=== PATIENT | male | born 1935 | race Caucasian/White ===

== ENCOUNTER 2017-08-02 05:38 | Outpatient (CLI) | payer MEDICARE, OTHER ==
[~2017-08-02] VITALS: Ht 175.3 cm; Wt 90.7 kg
[~2017-08-02 05:38] MED LIST: AC500T PO; ACDPT PO; ACEB200C PO; ALBU17AE23 IH; ASP81TEC PO; CEPH500C PO; CIPR500T78 PO; FLC1T PO; GBPN300C PO; GEMF600T3 PO; KCL20TCR PO; LOSA1TAB3 PO; LOSA1TAB9 PO; MULT-241 PO; NIA500ERT PO; NIAC1TBM5 PO; NIFE90TA4 PO; OMEG1CAP24 PO; SMV20T PO; VITA150T PO
[2017-08-02] MEDS ORDERED: ACEB200C PO (11:35)
[2017-08-02] MEDS ORDERED: FINA5TAB6 PO (11:35)
[2017-08-02] MEDS ORDERED: SIMV20TA3 PO (11:35)
[2017-08-02] MEDS ORDERED: AMLO10TA2 PO (11:35)
[2017-08-02] MEDS ORDERED: MULT-35 PO (11:35)
[2017-08-02] MEDS ORDERED: FOLI1TAB24 PO (11:35)
[2017-08-02] MEDS ORDERED: NIAC500T24 PO (11:35)
[2017-08-02] MEDS ORDERED: TAMS0.4C2 PO (11:35)
[2017-08-02] MEDS ORDERED: ACET-2469 PO (11:35)
[2017-08-02] MEDS ORDERED: VITA1CAP PO (11:35)
[2017-08-02] MEDS ORDERED: OMEG1CAP24 PO (11:35)
[2017-08-02] MEDS ORDERED: ASPI-586 PO (11:35)
[2017-08-02] MEDS ORDERED: LOSA25TA21 PO (11:35)
== END 2017-08-02 11:51 ==
LOC: PREOP 05:38
PROVIDERS: ATTEND Surgery
DX: Z01.818 Encounter for other preprocedural examination (principal); Z85.038 Personal history of other malignant neoplasm of large intestine

== ENCOUNTER 2017-08-09 09:28 | Day surgery (SDC) | payer MEDICARE, OTHER ==
[~2017-08-09] VITALS: Ht 175.3 cm; Wt 90.7 kg
[~2017-08-09 09:28] MED LIST changes: +ACET-2469 PO; +AMLO10TA2 PO; +ASPI-586 PO; +FINA5TAB6 PO; +FOLI1TAB24 PO; +LOSA25TA21 PO; +MULT-35 PO; +NIAC500T24 PO; +SIMV20TA3 PO; +TAMS0.4C2 PO; +VITA1CAP PO
--- OUTSIDE RECORDS SUMMARY | 2017-08-09 09:31 | XMS REPORT | Continuity of Care Document ---
Author Author [facility] Organization [facility] Address Unknown Phone Unavailable Allergies Active Description Code Type Severity Reaction Onset Reported/Identified Relationship to Patient Clinical Status Yes No Known Drug Allergies [id number] Drug Allergy Unknown N/A 08/02/2017 Medications There is no data. 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 08/13/2011 Ot 286.6 DEFIBRINATION SYNDROME 08/13/2011 Ot 300.00 ANXIETY STATE NOS 08/13/2011 Ot 355.9 MONONEURITIS NOS 08/13/2011 Ot 403.90 HYPTNSV CHR KID DIS, UNSPEC, W CHR KD ST 08/13/2011 Ot 414.01 CORONARY ATHEROSCLEROSIS OF EEK CORON 08/13/2011 Ot 482.39 PNEUMONIA DUE TO OTHER STREPTOCOCCUS 08/13/2011 Ot 585.3 CHRONIC KIDNEY DISEASE, STAGE III (MODER 08/13/2011 Ot 593.9 RENAL URETERAL DIS NOS 08/13/2011 Ot 682.6 CELLULITIS OF LEG 08/13/2011 Ot 726.73 CALCANEAL SPUR 08/13/2011 Ot 909.5 LATE EFF ADVER EFF DRUG,MEDICINAL/BIOLOG 08/13/2011 Ot 995.92 SEVERE SEPSIS 08/13/2011 Ot E933.1 ADV EFF ANTINEOPLASTIC 08/13/2011 Ot V10.05 HX OF COLONIC MALIGNANCY 08/13/2011 Ot V15.82 HISTORY OF TOBACCO USE 08/13/2011 Ot V45.72 ACQRD ABSENCE INTESTINE - LARGE/SMALL 08/13/2011 Ot V45.82 PERCUTANEOUS TRANSLUM CORON ANGIOPLASTY 03/16/2012 Ot 272.4 HYPERLIPIDEMIA NEC/NOS 03/16/2012 Ot 401.9 HYPERTENSION NOS 03/16/2012 Ot 414.01 CORONARY ATHEROSCLEROSIS OF EEK CORON 03/16/2012 Ot 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 03/16/2012 Ot 426.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 03/16/2012 Ot 433.10 CAROTID ARTERY OCCLUSION W O CEREBRAL IN 03/16/2012 Ot 794.30 ABN CARDIOVASC STUDY NOS 03/16/2012 Ot V45.82 PERCUTANEOUS TRANSLUM CORON ANGIOPLASTY 03/16/2012 Ot V58.66 LONG-TERM ( CURRENT) USE OF ASPIRIN 03/16/2012 Ot V58.69 OTH MED,LT, CURRENT USE 10/29/2013 YANIRA PANG MD Ot 599.0 URIN TRACT INFECTION NOS 10/29/2013 YANIRA PANG MD Ot 788.1 DYSURIA 05/31/2014 NAM COLEMAN, RYLEE K Ot 272.4 05/31/2014 NAM PA, RYLEE K Ot 396.8 05/31/2014 NAM PA, RYLEE K Ot 397.0 05/31/2014 NAM PA, RYLEE K Ot 401.9 05/31/2014 NAM PA, RYLEE K Ot 414.00 06/08/2014 NAM PA, RYLEE K Ot 272.4 06/08/2014 NAM PA, RYLEE K Ot 401.9 06/08/2014 NAM PA, RYLEE K Ot 414.00 06/08/2014 NAM PA, RYLEE K Ot 426.4 06/08/2014 ANM PA, RYLEE K Ot 427.61 06/08/2014 NAM PA, RYLEE K Ot 427.69 06/08/2014 NAM PA, RYLEE K Ot 780.79 06/12/2014 NAM PA, RYLEE K Ot 272.4 06/12/2014 NAM PA, RYLEE K Ot 396.8 06/12/2014 NAM PA, RYLEE K Ot 397.0 06/12/2014 NAM PA, RYLEE K Ot 401.9 06/12/2014 NAM PA, RYLEE K Ot 414.00 06/22/2014 NAM PA, RYLEE K Ot 272.4 06/22/2014 RYLEE PASTRANA Ot 401.9 06/22/2014 NAM COLEMAN, RYLEE Marquez Ot 414.00 06/22/2014 RYLEE PASTRANA Ot 426.4 06/22/2014 RYLEE PASTRANA Ot 427.61 06/22/2014 NAM COLEMAN, RYLEE Marquez Ot 427.69 06/22/2014 NAM COLEMAN, RYLEE Marquez Ot 780.79 05/13/2016 Ot 272.4 HYPERLIPIDEMIA NEC/NOS 05/13/2016 Ot 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 05/13/2016 Ot 397.0 TRICUSPID VALVE DISEASE 05/13/2016 Ot 401.9 HYPERTENSION NOS 05/13/2016 Ot 414.00 CORON ATHEROSCLER NOS TYPE VESSEL, NATIV 05/13/2016 Ot 429.3 CARDIOMEGALY 05/13/2016 Ot 272.4 HYPERLIPIDEMIA NEC/NOS 05/13/2016 Ot 401.9 HYPERTENSION NOS 05/13/2016 Ot 414.00 CORON ATHEROSCLER NOS TYPE VESSEL, NATIV 05/13/2016 Ot 272.4 HYPERLIPIDEMIA NEC/NOS 05/13/2016 Ot 401.9 HYPERTENSION NOS 05/13/2016 Ot 414.01 CORONARY ATHEROSCLEROSIS OF EEK CORON 05/13/2016 RYLEE PASTRANA Ot 272.4 HYPERLIPIDEMIA NEC/NOS 05/13/2016 RYLEE PASTRANA Ot 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 05/13/2016 RYLEE PASTRANA Ot 397.0 TRICUSPID VALVE DISEASE 05/13/2016 RYLEE PASTRANA Ot 401.9 HYPERTENSION NOS 05/13/2016 RYLEE PASTRANA Ot 414.00 CORON ATHEROSCLER NOS TYPE VESSEL, NATIV 05/13/2016 RYLEE PASTRANA Ot 272.4 HYPERLIPIDEMIA NEC/NOS 05/13/2016 RYLEE PASTRANA Ot 401.9 HYPERTENSION NOS 05/13/2016 RYLEE PASTRANA Ot 414.00 CORON ATHEROSCLER NOS TYPE VESSEL, NATIV 05/13/2016 RYLEE PASTRANA Ot 426.4 RT BUNDLE BRANCH BLOCK 05/13/2016 RYLEE PASTRANA Ot 427.61 ATRIAL PREMATURE BEATS 05/13/2016 RYLEE PASTRANA Ot 427.69 PREMATURE BEATS NEC 05/13/2016 RYLEE PASTRANA Ot 780.79 OTH MALAISE FATIGUE 05/14/2016 GERALD RODRIGUEZ MD Ot E78.2 MIXED HYPERLIPIDEMIA 05/14/2016 GERALD RODRIGUEZ MD Ot I10 ESSENTIAL (PRIMARY) HYPERTENSION 05/14/2016 GERALD RODRIGUEZ MD Ot I25.10 ATHSCL HEART DISEASE OF EEK CORONARY 05/14/2016 GERALD RODRIGUEZ MD Ot 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 05/14/2016 GERALD RODRIGUEZ MD Ot E78.2 MIXED HYPERLIPIDEMIA 05/14/2016 GERALD RODRIGUEZ MD Ot I10 ESSENTIAL (PRIMARY) HYPERTENSION 05/14/2016 GERALD RODRIGUEZ MD Ot I25.10 ATHSCL HEART DISEASE OF EEK CORONARY 05/14/2016 GERALD RODRIGUEZ MD Ot 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 06/02/2016 GERALD RODRIGUEZ MD Ot E78.2 MIXED HYPERLIPIDEMIA 06/02/2016 GERALD RODRIGUEZ MD Ot I10 ESSENTIAL (PRIMARY) HYPERTENSION 06/02/2016 GERALD RODRIGUEZ MD Ot I25.10 ATHSCL HEART DISEASE OF EEK CORONARY 06/02/2016 GERALD RODRIGUEZ MD Ot 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 08/02/2017 MICHELINE RAMEY, PATRICIA Patel Ot Z01.818 ENCOUNTER FOR OTHER PREPROCEDURAL EXAMIN 08/02/2017 MICHELINE RAMEY, PATRICIA Patel Ot Z85.038 PERSONAL HISTORY OF MALIGNANT NEOPLASM O 08/05/2017 Ot 272.4 HYPERLIPIDEMIA NEC/NOS 08/05/2017 Ot 401.9 HYPERTENSION NOS 08/05/2017 Ot 414.00 CORON ATHEROSCLER NOS TYPE VESSEL, NATIV 08/05/2017 Ot 272.4 HYPERLIPIDEMIA NEC/NOS 08/05/2017 Ot 401.9 HYPERTENSION NOS 08/05/2017 Ot 414.01 CORONARY ATHEROSCLEROSIS OF EEK CORON 08/05/2017 RYLEE PASTRANA Ot 272.4 HYPERLIPIDEMIA NEC/NOS 08/05/2017 RYLEE PASTRANA Ot 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 08/05/2017 RYLEE PASTRANA Ot 397.0 TRICUSPID VALVE DISEASE 08/05/2017 NAM COLEMAN RYLEE K Ot 401.9 HYPERTENSION NOS 08/05/2017 NAM COLEMAN RYLEE K Ot 414.00 CORON ATHEROSCLER NOS TYPE VESSEL, NATIV 08/05/2017 NAM COLEMAN RYLEE K Ot 272.4 HYPERLIPIDEMIA NEC/NOS 08/05/2017 NAM COLEMAN RYLEE K Ot 401.9 HYPERTENSION NOS 08/05/2017 NAM COLEMAN, RYLEE K Ot 414.00 CORON ATHEROSCLER NOS TYPE VESSEL, NATIV 08/05/2017 NAM COLEMAN RYLEE K Ot 426.4 RT BUNDLE BRANCH BLOCK 08/05/2017 RYLEE PASTRANA Ot 427.61 ATRIAL PREMATURE BEATS 08/05/2017 RYLEE PASTRANA Ot 427.69 PREMATURE BEATS NEC 08/05/2017 RYLEE PASTRANA Ot 780.79 OTH MALAISE FATIGUE 08/05/2017 GERALD RODRIGUEZ MD Ot E78.2 MIXED HYPERLIPIDEMIA 08/05/2017 GERALD RODRIGUEZ MD Ot I10 ESSENTIAL (PRIMARY) HYPERTENSION 08/05/2017 GERALD RODRIGUEZ MD, Ot I25.10 ATHSCL HEART DISEASE OF EEK CORONARY 08/05/2017 GERALD RODRIGUEZ MD, Ot 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 Results There is no data. Encounters ACCT No. Visit Date/Time Discharge Status Pt. Type Provider Facility Loc./Unit Complaint [id number] 08/02/2017 05:38:00 08/02/2017 11:51:00 DIS Outpatient PATRICIA TOBIAS MD [facility] PREOP HX COLON CA [id number] 05/13/2016 10:37:00 05/13/2016 23:59:59 CLS Outpatient GERALD RODRIGUEZ MD [facility] CARD CAD,HTN [id number] 05/14/2014 08:12:00 05/14/2014 23:59:59 CLS Outpatient RYLEE PASTRANA [facility] CARD CAD,HTN,HLP [id number] 05/07/2014 09:55:00 05/07/2014 23:59:59 CLS Outpatient NAM COLEMAN, RYLEE Marquez [facility] CARD CAD,HTN,HLP [id number] 10/29/2013 09:26:00 10/29/2013 12:00:00 DIS Emergency POLY RAMEY, YANIRA Marquez [facility] ER UTI [id number] 08/09/2017 10:30:00 PEN Preadmit MICHELINE RAMEY, PATRICIA Patel [facility] ENDO HX COLON CA [id number] 03/16/2012 08:45:00 Document Registration [id number] 03/09/2012 10:44:00 Document Registration [id number] 03/07/2012 11:23:00 Document Registration [id number] 08/02/2011 21:49:00 Document Registration [id number] 02/27/2011 10:08:00 Document Registration
[2017-08-09] MEDS ORDERED: NS IV 500 ML 500 ML IV PRN (09:33)
[2017-08-09 09:40] VITALS: BP 171/89
[2017-08-09] MEDS ORDERED: MIDAZOLAM 2 MG/2 ML (VERSED) VIAL IVP PRN (09:45)
--- NOTE | 2017-08-09 10:51 | History & Physicial ---
History of Present Illness History of Present Illness Reason for visit/HPI to undergo surveillance colonoscopy. 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 in 2005 Date of Admission 08/09/17 Date Seen by Provider: Aug 09, 2017 Time Seen by Provider: 10:49 I consulted on this patient on 08/09/17 10:49 Attending Physician Patricia Tobias MD Admitting Physician Jordan Bai MD Consult Allergies and Home Medications Allergies Coded Allergies: No Known Drug Allergies (Unverified , 08/02/17) Home Medications Acebutolol HCl 200 Mg Capsule, 200 MG PO BID, (Reported) Acetaminophen/Diphenhydramine 1 Each Tablet, 2 EACH PO HS, (Reported) Amlodipine Besylate 10 Mg Tablet, 10 MG PO DAILY, (Reported) Aspirin 81 Mg Tablet.dr, 81 MG PO DAILY, (Reported) Finasteride 5 Mg Tablet, 5 MG PO DAILY, (Reported) Folic Acid 1 Mg Tablet, 1 MG PO BID, (Reported) Losartan Potassium 25 Mg Tablet, 25 MG PO DAILY, (Reported) Multivitamin 1 Each Tablet, 1 EACH PO DAILY, (Reported) Niacinamide 500 Mg Tablet, 500 MG PO DAILY, (Reported) Dalton-3 Fatty Acids/Fish Oil 1 Each Capsule.dr, 1 EACH PO BID, (Reported) Simvastatin 20 Mg Tablet, 20 MG PO DAILY, (Reported) Tamsulosin HCl 0.4 Mg Cap.er.24h, 0.4 MG PO DAILY, (Reported) Vitamin B Complex 1 Each Capsule, 1 EACH PO BID, (Reported) Past Fhgmhqx-Ksmefv-Nwdvzi Hx Patient Social History Marrital Status: Employed/Student: retired Alcohol Use: Occasionally Uses Recreational Drug Use: No (OCCASIONAL ETOH) Smoking Status: Former Smoker Former Smoker, Quit: Aug 02, 1987 Recent Foreign Travel: No Contact w/other who traveled: No Recent Hopitalizations: No Recent Infectious Disease Expo: No Immunizations Up To Date Tetanus Booster (TDap): Less than 5yrs Date of Pneumonia Vaccine: May 03, 2017 Date of Influenza Vaccine: May 03, 2017 Seasonal Allergies Seasonal Allergies: No Surgeries Yes Bowel Surgery Respiratory No Cardiovascular Yes Coronary Artery Disease, High Cholesterol, Hypertension Neurological No Reproductive System Hx Reproductive Disorders: No Sexually Transmitted Disease: No HIV/AIDS: No Genitourinary Yes Prostate Problems Gastrointestinal No Gall Bladder Disease Musculoskeletal Yes Arthritis, Chronic Back Pain Endocrine History of Endocrine Disorders: No HEENT History of HEENT Disorders: Yes Loss of Vision: Bilateral Hearing Impairment: Denies Cancer Yes Colon Did You Recieve Any Treatments: Yes Type of Treatment: Chemotherapy, Surgical Intervention Psychosocial History of Psychiatric Problem: No Blood Transfusions Adverse Reaction to a Blood Tr: No (HAS HAD BLOOD WITH NO REACTION) Constitutional: no symptoms reported EENTM: no symptoms reported Respiratory: no symptoms reported Cardiovascular: no symptoms reported Gastrointestinal: no symptoms reported Genitourinary: no symptoms reported Musculoskeletal: no symptoms reported, joint pain Skin: no symptoms reported Psychiatric/Neurological: No Symptoms Reported Physical Exam Vital Signs Vital Sign - Last 12Hours 08/09/17 09:40 Temp 97.9 Pulse 57 Resp 18 B/P (MAP) 171/89 (116) Pulse Ox 98 O2 Delivery Room Air Capillary Refill : General Appearance: No Apparent Distress HEENT: Normal ENT Inspection Neck: Normal Inspection Respiratory: Lungs Clear Cardiovascular: Regular Rate, Rhythm Gastrointestinal: Non Tender, Soft Rectal: Deferred Back: Normal Inspection Extremity: Normal Inspection Neurologic/Psychiatric: Alert, Oriented x3 Skin: Warm/Dry Assessment/Plan Assessment and Plan gentleman with a previous history of right colon carcinoma. For surveillance colonoscopy Problems: PATRICIA TOBIAS MD Aug 09, 2017 10:51 am
--- NOTE | 2017-08-09 10:52 | Conscious Sedation/ASA ---
Conscious Sedation Pre-Proced Time Reviewed: 10:51 ASA Class: 2 Airway Mallampati Classification: ([place] appropriate class) I. II. III, IV Lungs Heart ASA score ASA 1: a normal healthy patient ASA 2: a patient with a mild systemic disease (mid diabetes, controlled hypertension, obesity ASA 3: a patient with a severe systemic disease that limits activity (angina , COPD, prior Myocardial infarction) ASA 4: a patient with an incapacitating disease that is a constant threat to life (CHF, renal failure) ASA 5: a moribund patient not expected to survive 24 hrs. (ruptured aneurysm) ASA 6: a declared brain patient whose organs are being harvested. For emergent operations, add the letter E after the classification Grade 2 Sedation Plan: Discussed options with patient/fam Note The patient is an appropriate candidate to undergo the planned procedure, sedation, and anesthesia. The patient immediately re-assessed prior to indication. PATRICIA TOBIAS MD Aug 09, 2017 10:51 am
[2017-08-09] MEDS ORDERED: MIDAZOLAM 2 MG/2 ML (VERSED) VIAL ONE (11:26)
[2017-08-09] MEDS ORDERED: fentaNYL INJECTION 100 MCG/2 ML AMP ONE (11:27)
[2017-08-09] MEDS ORDERED: NS IV 500 ML 0 ML ONE (11:34)
[2017-08-09] MEDS: fentaNYL INJECTION 100 MCG/2 ML AMP IVP PRN ×2 (11:45→12:00)
[2017-08-09 12:20] VITALS: BP 150/84
--- NOTE | 2017-08-09 12:27 | Endo Procedure Record ---
Endo Procedure Report Date of Procedure Last Colonoscopy: Yes (2012) Aug 09, 2017 Surgeon (s) PATRICIA TOBIAS MD Post Procedure/Op Diagnosis Very few sigmoid diverticula Procedure Performed Colonoscopy to ileocolic anastomosis Description of Procedure Anesthesia Type: Conscious Sedation Specimen(s) collected/removed none Description of the Procedure indication for procedure: This gentleman had undergone right hemicolectomy to manage a T3 N1 carcinoma of the ascending colon about 11 years ago. He came in for surveillance colonoscopy. Informed consent was obtained after reviewing the procedure in detail. Description of the procedure: He was placed in left lateral decubitus position and his vital signs were monitored. Conscious sedation was achieved using Versed and fentanyl. Digital rectal examination was unremarkable. The colonoscope was then introduced into the rectum and advanced to the ileocolic anastomosis, there was widely patent. It was then withdrawn slowly and the mucosa examined in a systematic fashion. Findings: Very few, scattered sigmoid diverticula He tolerated the procedure well and was taken back to the nursing area in a stable condition having impression previous carcinoma the right colon. No polyps. Recommend repeating in 3 years. Copies To: MARIANA DRIVER MD, XAVIER M MD Aug 09, 2017 12:27 pm
--- NOTE | 2017-08-09 12:29 | Discharge Inst-Simple/Standard ---
Discharge Inst-Standard Discharge Medications New, Converted or Re-Newed RX: Other Patient Instructions/Follow Up Plan of Care/Instructions/FU: Repeat colonoscopy in 3 Years Activity as Tolerated: Yes Discharge Diet: No Restrictions PATRICIA TOBIAS MD Aug 09, 2017 12:29 pm
[2017-08-09 12:50] VITALS: BP 130/69
[2017-08-09 12:52] VITALS: BP 130/69
== END 2017-08-09 12:54 | disposition home or self-care (01) ==
LOC: ENDO 09:28
PROVIDERS: ATTEND Surgery
DX: Z08 Encounter for follow-up examination after completed treatment for malignant neoplasm (principal); K57.30 Diverticulosis of large intestine without perforation or abscess without bleeding; Z85.038 Personal history of other malignant neoplasm of large intestine; Z87.891 Personal history of nicotine dependence; I25.10 Atherosclerotic heart disease of native coronary artery without angina pectoris; E78.00 Pure hypercholesterolemia, unspecified; I10 Essential (primary) hypertension; Z92.21 Personal history of antineoplastic chemotherapy

== ENCOUNTER → 2019-01-04 | Outpatient (CLI) | payer MEDICARE, OTHER ==
[~2019-01-04] VITALS: Ht 175.3 cm; Wt 90.3 kg
[~2019-01-04] MED LIST changes: -AMLO10TA2 PO; +AMLO10TA7 PO; +CATHETER FLUSH 10 ML SYR IV PRN; -LOSA25TA21 PO; +LOSA25TA41 PO; +REGADENOSON 0.4 MG/5 ML SYR (LEXISCAN) IV ONE
[2019-01-04 08:17] VITALS: BP 119/74
--- NOTE | 2019-01-04 14:46 | STRESS TEST ---
DATE OF SERVICE: 01/04/2019 LEXISCAN MYOVIEW STRESS TEST REFERRING PHYSICIAN: Dr. Bai. Baseline heart rate is 69, baseline blood pressure is 140/89. Baseline EKG is atrial fibrillation with right bundle branch block. In summary, the patient was injected with 10.83 mCi of technetium-99 Myoview and the resting images were obtained. Then, the patient received 0.4 mg of Lexiscan followed by 32.0 mCi of technetium-99 Myoview. Throughout the test, there were no EKG changes. The resting and stress images were reviewed and compared in the short axis, horizontal long axis, and vertical long axis views. Review of the images showed diaphragmatic attenuation with typical male pattern. No significant ischemia or infarction was seen. SSS is 4. SDS 0. TID value 1.01. On the gated images, the left ventricle appeared to be normal size with normal contractility. Calculated ejection fraction 60%, gated images are unreliable due to underlying atrial fibrillation. CONCLUSION: 1. The patient tolerated Lexiscan well. 2. Baseline atrial fibrillation with right bundle branch block. 3. No significant ischemia or infarction on SPECT images. 4. Normal left ventricular size with normal contractility. Calculated ejection fraction 60%, gated images are unreliable due to underlying atrial fibrillation. Job ID: [id number] DocumentID: [id number] Dictated Date: 01/04/2019 14:25:47 Systems Programmer Date: 01/04/2019 14:45:50 Dictated By: GERALD RODRIGUEZ MD
== END ==
LOC: CARD 06:36
PROVIDERS: ATTEND Physician Assistant
DX: I25.10 Atherosclerotic heart disease of native coronary artery without angina pectoris (principal); I10 Essential (primary) hypertension; E78.5 Hyperlipidemia, unspecified; I44.4 Left anterior fascicular block; I08.1 Rheumatic disorders of both mitral and tricuspid valves
CPT/HCPCS: 78452; 93017; 93306

== ENCOUNTER 2019-01-11 07:26 | Day surgery (SDC) | payer MEDICARE, OTHER ==
[2019-01-11] VITALS (18 sets, daily range): BP systolic 103–150; BP diastolic 62–96
[~2019-01-11] VITALS: Ht 175.3 cm; Wt 86.6 kg
[~2019-01-11 07:26] MED LIST changes: -CATHETER FLUSH 10 ML SYR IV PRN; +LIDOCAINE 2% VISCOUS 15 ML UDC ONE; +NS IV 1000 ML 1,000 ML ONE; -REGADENOSON 0.4 MG/5 ML SYR (LEXISCAN) IV ONE
[2019-01-11] MEDS ORDERED: NS IV 1000 ML 1,000 ML IV SCH ×2 (07:36→07:45)
--- NOTE | 2019-01-11 08:00 | Diagnostic Imaging Report ---
INDICATION: Preop. Comparison with 03/16/2012. FINDINGS: Portable chest shows the lungs to be well-aerated and clear. Heart is not enlarged. No hilar adenopathy. No pneumothorax or pleural effusion. IMPRESSION: Normal portable chest. Dictated by: Dictated on workstation # [id number]
[2019-01-11 08:11] LABS: HEMOGLOBIN 14.9 G/DL (13.3-17.7); MEAN PLATELET VOLUME 9.3 FL (7.4-10.4); RED CELL DISTRIBUTION WIDTH 14.2 % (10.0-14.5); WHITE BLOOD COUNT 7.6 10^3/uL (4.3-11.0)
[2019-01-11 08:27] LABS: ALANINE AMINOTRANSFERASE 15 U/L (0-55); ALBUMIN 4.7 GM/DL (3.2-4.5); ALKALINE PHOSPHATASE 61 U/L (40-136); BUN/CREATININE RATIO 14; CALCIUM 10.1 MG/DL (8.5-10.1); CARBON DIOXIDE 25 MMOL/L (21-32); CHLORIDE 102 MMOL/L (98-107); CREATININE SERUM 2.22 MG/DL (0.60-1.30); GFR ESTIMATED 29; GLUCOSE 101 MG/DL (70-105); POTASSIUM 3.8 MMOL/L (3.6-5.0); SODIUM 140 MMOL/L (135-145); TOTAL PROTEIN 8.3 GM/DL (6.4-8.2)
[2019-01-11 08:30] LABS: INR 1.2 (0.8-1.4); PROTHROMBIN TIME PATIENT 15.4 SEC (12.2-14.7)
[2019-01-11] MEDS ORDERED: APIX5TAB PO (08:32)
[2019-01-11] MEDS ORDERED: LOSA1TAB26 PO (08:32)
[2019-01-11] MEDS ORDERED: DIPH25TA65 PO (08:32)
[2019-01-11] MEDS ORDERED: CHOL10007 PO (08:32)
[2019-01-11] MEDS ORDERED: proPOfol 200 MG/20 ML (DIPRIVAN) VIAL IV ONE ×2 (08:35→12:09)
[2019-01-11] MEDS ORDERED: MIDAZOLAM 2 MG/2 ML (VERSED) VIAL ONE (08:35)
--- NOTE | 2019-01-11 09:23 | Cardiac Procedure Note-CS/ASA ---
Pre-Procedure Note Pre-Op Procedure Note H&P Reviewed The H&P was reviewed, patient examined and no changes noted. Date H&P Reviewed: Jan 11, 2019 Time H&P Reviewed: 09:23 Conscious Sedation Pre-Proced Time 09:23 ASA Score 3 For ASA 3 and 4: Consider anesthesia and medical clearance. Also, for patients with a history of failed moderate sedation consider anesthesia. Airway Lungs Heart ASA score ASA 1: a normal healthy patient ASA 2: a patient with a mild systemic disease (mid diabetes, controlled hypertension, obesity x ASA 3: a patient with a severe systemic disease that limits activity (angina, COPD, prior Myocardial infarction) ASA 4: a patient with an incapacitating disease that is a constant threat to life (CHF, renal failure) ASA 5: a moribund patient not expected to survive 24 hrs. (ruptured aneurysm) ASA 6: a declared brain- patient whose organs are being harvested. For emergent operations, add the letter E after the classification Mallampati Classification Grade 3 Sedation Plan Analgesia, Amnesia, Plan communicated to team members, Discussed options with patient/fam, Discussed risks with patient/fam The patient is an appropriate candidate to undergo the planned procedure, sedation, and anesthesia. The patient immediately re-assessed prior to indication. GERALD RODRIGUEZ MD Jan 11, 2019 09:23
--- NOTE | 2019-01-11 09:56 | Cardioversion ---
Cardioversion PROCEDURE PHYSICIAN: Gerald Sanchez DATE OF PROCEDURE: 01/11/19 DIRECT EXTERNAL ELECTRICAL CARDIOVERSION: Indications: Atrial Fibrillation with rapid ventricular rate Preoperative diagnoses: Atrial Fibrillation with rapid ventricular rate Postoperative diagnosis: Sinus rhythm, Successful Electrical Cardioversion History: 83 years old gentleman with history of coronary artery disease noted to be in atrial fibrillation, started on Eliquis, scheduled for AMAYA and electrical cardioversion Anesthesia: By Anesthesia services Complications: None Specimen: None Contrast: 0 Flouroscopy: none Procedure Details: The patient was brought the paint laboratory technician after informed consent was taken, all the risks and complications were explained including the risk of stroke. Electrical cardioversion was carried out with anesthesia support with propofol. 200 joules of synchronized shock was delivered through external patches which promptly restored sinus rhythm. The patient tolerated the procedure well. Conclusions: Successful AMAYA with electrical cardioversion with no complication Final Diagnosis: Atrial fibrillation with rapid ventricular response Coronary artery disease Hypertension Hyperlipidemia GERALD SANCHEZ MD Jan 11, 2019 09:56
[2019-01-11] MEDS ORDERED: AMIODARONE 200 MG (CORDARONE) TAB PO SCH ×2 (10:00→21:00)
[2019-01-11] MEDS ORDERED: APIXABAN 5 MG (ELIQUIS) TABLET PO SCH ×2 (10:00→21:00)
[2019-01-11] MEDS ORDERED: AMIODARONE FOR BOLUS 150 MG in D5W 100 ML IVPB 100 ML IV ONE (10:00)
--- OUTSIDE RECORDS SUMMARY | 2019-01-11 10:11 | XMS REPORT | Continuity of Care Document ---
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 03/16/2012 Ot 426.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 03/16/2012 Ot 433.10 CAROTID ARTERY OCCLUSION W O CEREBRAL IN 03/16/2012 Ot 794.30 ABN CARDIOVASC STUDY NOS 03/16/2012 Ot V45.82 PERCUTANEOUS TRANSLUM CORON ANGIOPLASTY 03/16/2012 Ot V58.66 LONG-TERM (CURRENT) USE OF ASPIRIN 03/16/2012 Ot V58.69 OTH MED,LT,CURRENT USE 10/29/2013 YANIRA PANG MD Ot 599.0 [...] NAM PA, RYLEE K Ot 426.4 06/08/2014 NAM PA, RYLEE K Ot 427.61 06/08/2014 NAM PA, RYLEE K Ot 427.69 06/08/2014 NAM PA, RYLEE K Ot 780.79 06/12/2014 NAM PA, RYLEE K Ot 272.4 06/12/2014 NAM PA, RYLEE K Ot 396.8 06/12/2014 NAM PA, RYLEE K Ot 397.0 06/12/2014 NAM PA, RYLEE K Ot 401.9 06/12/2014 NAM PA, RYLEE K Ot 414.00 06/22/2014 NAM PA, RYLEE K Ot 272.4 06/22/2014 HUSAINRYLEE MARES Ot 401.9 06/22/2014 NAM COLEMAN, RYLEE Marquez Ot 414.00 06/22/2014 RYLEE PASTRANA Ot 426.4 06/22/2014 RYLEE PASTRANA Ot 427.61 06/22/2014 RYLEE PASTRANA Ot 427.69 06/22/2014 RYLEE PASTRANA Ot 780.79 05/13/2016 Ot 272.4 HYPERLIPIDEMIA NEC/NOS 05/13/2016 Ot 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 05/13/2016 Ot 397.0 TRICUSPID VALVE DISEASE 05/13/2016 Ot 401.9 HYPERTENSION NOS 05/13/2016 Ot 414.00 CORON ATHEROSCLER NOS TYPE VESSEL, NATIV 05/13/2016 Ot 429.3 CARDIOMEGALY 05/13/2016 Ot 272.4 HYPERLIPIDEMIA NEC/NOS 05/13/2016 Ot 401.9 HYPERTENSION NOS 05/13/2016 Ot 414.00 CORON ATHEROSCLER NOS TYPE VESSEL, NATIV 05/13/2016 Ot 272.4 HYPERLIPIDEMIA NEC/NOS 05/13/2016 Ot 401.9 HYPERTENSION NOS 05/13/2016 Ot 414.01 CORONARY ATHEROSCLEROSIS OF [place] CORON 05/13/2016 RYLEE PASTRANA Ot 272.4 HYPERLIPIDEMIA [...] MD Ot I25.10 ATHSCL HEART DISEASE OF [place] CORONARY 05/14/2016 GERALD RODRIGUEZ MD Ot 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 05/14/2016 GERALD RODRIGUEZ MD Ot E78.2 MIXED HYPERLIPIDEMIA 05/14/2016 GERALD RODRIGUEZ MD Ot I10 ESSENTIAL (PRIMARY) HYPERTENSION 05/14/2016 GERALD RODRIGUEZ MD Ot I25.10 ATHSCL HEART DISEASE OF [place] CORONARY 05/14/2016 GERALD RODRIGUEZ MD Ot 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 06/02/2016 GERALD RODRIGUEZ MD Ot E78.2 MIXED HYPERLIPIDEMIA 06/02/2016 GERALD RODRIGUEZ MD Ot I10 ESSENTIAL (PRIMARY) HYPERTENSION 06/02/2016 GERALD RODRIGUEZ MD Ot I25.10 ATHSCL HEART DISEASE OF [place] CORONARY 06/02/2016 GERALD RODRIGUEZ MD Ot I65.23 [...] NOS 08/05/2017 Ot 414.01 CORONARY ATHEROSCLEROSIS OF [place] CORON 08/05/2017 RYLEE PASTRANA Ot 272.4 HYPERLIPIDEMIA NEC/NOS 08/05/2017 RYLEE PASTRANA Ot 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 08/05/2017 RYLEE PASTRANA Ot 397.0 TRICUSPID VALVE DISEASE 08/05/2017 NAM JARED, RYLEE Marquez Ot 401.9 HYPERTENSION NOS 08/05/2017 NAM JARED, RYLEE Marquez Ot 414.00 CORON ATHEROSCLER NOS TYPE VESSEL, NATIV 08/05/2017 NAM JARED, RYLEE K Ot 272.4 HYPERLIPIDEMIA NEC/NOS 08/05/2017 NAM JARED, RYLEE K Ot 401.9 HYPERTENSION NOS 08/05/2017 NAM JARED, RYLEE K Ot 414.00 CORON ATHEROSCLER NOS TYPE VESSEL, NATIV 08/05/2017 NAM JARED, RYLEE Marquez Ot 426.4 RT BUNDLE BRANCH BLOCK 08/05/2017 NAM JARED RYLEE Marquez Ot 427.61 ATRIAL PREMATURE BEATS 08/05/2017 NAM JARED RYLEE K Ot 427.69 PREMATURE BEATS NEC 08/05/2017 PRIYANKLADARIUS COLEMAN RYLEE K Ot 780.79 OTH MALAISE FATIGUE 08/05/2017 GERALD RODRIGUEZ MD Ot E78.2 MIXED HYPERLIPIDEMIA 08/05/2017 GERALD RODRIGUEZ MD Ot I10 ESSENTIAL (PRIMARY) HYPERTENSION 08/05/2017 GERALD RODRIGUEZ MD Ot I25.10 ATHSCL HEART DISEASE OF [place] CORONARY 08/05/2017 GERALD RODRIGUEZ MD Ot 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 08/09/2017 MICHELINE RAMEY, PATRICIA Patel Ot E78.00 PURE HYPERCHOLESTEROLEMIA, UNSPECIFIED 08/09/2017 MICHELINE RAMEY, PATRICIA Patel Ot I10 ESSENTIAL (PRIMARY) HYPERTENSION 08/09/2017 MICHELINE RAMEY, PATRICIA Patel Ot I25.10 ATHSCL HEART DISEASE OF [place] CORONARY 08/09/2017 MICHELINE RAMEY, PATRICIA Patel Ot K57.30 DVRTCLOS OF LG INT W/O PERFORATION OR AB 08/09/2017 MICHELINE RAMEY, PATRICIA Patel Ot Z08 ENCNTR FOR FOLLOW-UP EXAM AFTER TRTMT FO 08/09/2017 PATRICIA TOBIAS MD, Ot Z85.038 PERSONAL HISTORY OF MALIGNANT NEOPLASM O 08/09/2017 MICHELINE RAMEY, PATRICIA Patel Ot Z87.891 PERSONAL HISTORY OF NICOTINE DEPENDENCE 08/09/2017 MICHELINE RAMEY, PATRICIA Patel Ot Z92.21 PERSONAL HISTORY OF ANTINEOPLASTIC CHEMO 08/10/2017 MICHELINE RAMEY, PATRICIA Patel Ot E78.00 PURE HYPERCHOLESTEROLEMIA, UNSPECIFIED 08/10/2017 PATRICIA TOBIAS MD Ot I10 ESSENTIAL (PRIMARY) HYPERTENSION 08/10/2017 PATRICIA TOBIAS MD Ot I25.10 ATHSCL HEART DISEASE OF [place] CORONARY 08/10/2017 PATRICIA TOBIAS MD Ot K57.30 DVRTCLOS OF LG INT W/O PERFORATION OR AB 08/10/2017 PATRICIA TOBIAS MD Ot Z08 ENCNTR FOR FOLLOW-UP EXAM AFTER TRTMT FO 08/10/2017 PATRICIA TOBIAS MD Ot Z85.038 PERSONAL HISTORY OF MALIGNANT NEOPLASM O 08/10/2017 PATRICIA TOBIAS MD Ot Z87.891 PERSONAL HISTORY OF NICOTINE DEPENDENCE 08/10/2017 PATRICIA TOBIAS MD Ot Z92.21 PERSONAL HISTORY OF ANTINEOPLASTIC CHEMO 08/12/2017 PATRICIA TOBIAS MD Ot E78.00 PURE HYPERCHOLESTEROLEMIA, UNSPECIFIED 08/12/2017 PATRICIA TOBIAS MD Ot I10 ESSENTIAL (PRIMARY) HYPERTENSION 08/12/2017 PATRICIA TOBIAS MD Ot I25.10 ATHSCL HEART DISEASE OF [place] CORONARY 08/12/2017 PATRICIA TOBIAS MD Ot K57.30 DVRTCLOS OF LG INT W/O PERFORATION OR AB 08/12/2017 PATRICIA TOBIAS MD Ot Z08 ENCNTR FOR FOLLOW-UP EXAM AFTER TRTMT FO 08/12/2017 PATRICIA TOBIAS MD Ot Z85.038 PERSONAL HISTORY OF MALIGNANT NEOPLASM O 08/12/2017 PATRICIA TOBIAS MD Ot Z87.891 PERSONAL HISTORY OF NICOTINE DEPENDENCE 08/12/2017 PATRICIA TOBIAS MD Ot Z92.21 PERSONAL HISTORY OF ANTINEOPLASTIC CHEMO 01/03/2019 RYLEE PASTRANA Ot 272.4 HYPERLIPIDEMIA NEC/NOS 01/03/2019 RYLEE PASTRANA Ot 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 01/03/2019 RYLEE PASTRANA Ot 397.0 TRICUSPID VALVE DISEASE 01/03/2019 RYLEE PASTRANA Ot 401.9 HYPERTENSION NOS 01/03/2019 HUSAIN-LADARIUS PA, RYLEE K Ot 414.00 CORON ATHEROSCLER NOS TYPE VESSEL, NATIV 01/03/2019 NAM COLEMAN RYLEE K Ot 272.4 HYPERLIPIDEMIA NEC/NOS 01/03/2019 NAM COLEMAN RYLEE K Ot 401.9 HYPERTENSION NOS 01/03/2019 NAM COLEMAN, RYLEE K Ot 414.00 CORON ATHEROSCLER NOS TYPE VESSEL, NATIV 01/03/2019 NAM COLEMAN RYLEE K Ot 426.4 RT BUNDLE BRANCH BLOCK 01/03/2019 RYLEE PASTRANA Ot 427.61 ATRIAL PREMATURE BEATS 01/03/2019 RYLEE PASTRANA Ot 427.69 PREMATURE BEATS NEC 01/03/2019 RYLEE PASTRANA Ot 780.79 OTH MALAISE FATIGUE 01/03/2019 MICHAEL RAMEY, GERALD Clark Ot E78.2 MIXED HYPERLIPIDEMIA 01/03/2019 MICHAEL RAMEY, GERALD Clark Ot I10 ESSENTIAL (PRIMARY) HYPERTENSION 01/03/2019 MICHAEL RAMEY, GERALD Clark Ot I25.10 ATHSCL HEART DISEASE OF [place] CORONARY 01/03/2019 MICHAEL RAMEY, GERALD Clark Ot 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 01/03/2019 RYLEE PASTRANA Ot 272.4 HYPERLIPIDEMIA NEC/NOS 01/03/2019 RYLEE PASTRANA Ot 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 01/03/2019 RYLEE PASTRANA Ot 397.0 TRICUSPID VALVE DISEASE 01/03/2019 NAM COLEMAN RYLEE K Ot 401.9 HYPERTENSION NOS 01/03/2019 NAM COLEMAN RYLEE K Ot 414.00 CORON ATHEROSCLER NOS TYPE VESSEL, NATIV 01/03/2019 NAM COLEMAN RYLEE K Ot 272.4 HYPERLIPIDEMIA NEC/NOS 01/03/2019 NAM COLEMAN RYLEE K Ot 401.9 HYPERTENSION NOS 01/03/2019 NAM COLEMAN RYLEE K Ot 414.00 CORON ATHEROSCLER NOS TYPE VESSEL, NATIV 01/03/2019 NAM COLEMAN RYLEE K Ot 426.4 RT BUNDLE BRANCH BLOCK 01/03/2019 RYLEE PASTRANA Ot 427.61 ATRIAL PREMATURE BEATS 01/03/2019 RYLEE PASTRANA Ot 427.69 PREMATURE BEATS NEC 01/03/2019 RYLEE PASTRANA Ot 780.79 OTH MALAISE FATIGUE 01/03/2019 GERALD RODRIGUEZ MD Ot E78.2 MIXED HYPERLIPIDEMIA 01/03/2019 GERALD RODRIGUEZ MD Ot I10 ESSENTIAL (PRIMARY) HYPERTENSION 01/03/2019 GERALD RODRIGUEZ MD Ot I25.10 ATHSCL HEART DISEASE OF [place] CORONARY 01/03/2019 GERALD RODRIGUEZ MD Ot 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 01/08/2019 RYLEE PASTRANA Ot E78.5 HYPERLIPIDEMIA, UNSPECIFIED 01/08/2019 RYLEE PASTRANA Ot I08.1 RHEUMATIC DISORDERS OF BOTH MITRAL AND T 01/08/2019 RYLEE PASTRANA Ot I10 ESSENTIAL (PRIMARY) HYPERTENSION 01/08/2019 RYLEE PASTRANA Ot I25.10 ATHSCL HEART DISEASE OF [place] CORONARY 01/08/2019 RYLEE PASTRANA Ot I44.4 LEFT ANTERIOR FASCICULAR BLOCK 01/09/2019 RYLEE PASTRANA Ot 272.4 HYPERLIPIDEMIA NEC/NOS 01/09/2019 RYLEE PASTRANA Ot 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 01/09/2019 RYLEE PASTRANA Ot 397.0 TRICUSPID VALVE DISEASE 01/09/2019 RYLEE PASTRANA Ot 401.9 HYPERTENSION NOS 01/09/2019 RYLEE PASTRANA Ot 414.00 CORON ATHEROSCLER NOS TYPE VESSEL, NATIV 01/09/2019 RYLEE PASTRANA Ot 272.4 HYPERLIPIDEMIA NEC/NOS 01/09/2019 RYLEE PASTRANA Ot 401.9 HYPERTENSION NOS 01/09/2019 RYLEE PASTRANA Ot 414.00 CORON ATHEROSCLER NOS TYPE VESSEL, NATIV 01/09/2019 RYLEE PASTRANA Ot 426.4 RT BUNDLE BRANCH BLOCK 01/09/2019 RYLEE PASTRANA Ot 427.61 ATRIAL PREMATURE BEATS 01/09/2019 RYLEE PASTRANA Ot 427.69 PREMATURE BEATS NEC 01/09/2019 RYLEE PASTRANA Ot 780.79 OTH MALAISE FATIGUE 01/09/2019 GERALD RODRIGUEZ MD, Ot E78.2 MIXED HYPERLIPIDEMIA 01/09/2019 GERALD RODRIGUEZ MD Ot I10 ESSENTIAL (PRIMARY) HYPERTENSION 01/09/2019 GERALD RODRIGUEZ MD Ot I25.10 ATHSCL HEART DISEASE OF [place] CORONARY 01/09/2019 GERALD RODRIGUEZ MD Ot 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 01/09/2019 RYLEE PASTRANA Ot E78.5 HYPERLIPIDEMIA, UNSPECIFIED 01/09/2019 RYLEE PASTRANA Ot I08.1 RHEUMATIC DISORDERS OF BOTH [place] AND T 01/09/2019 RYLEE PASTRANA Ot I10 ESSENTIAL (PRIMARY) HYPERTENSION 01/09/2019 RYLEE PASTRANA Ot I25.10 ATHSCL HEART DISEASE OF [place] CORONARY 01/09/2019 RYLEE PASTRANA Ot I44.4 LEFT ANTERIOR FASCICULAR BLOCK Procedures There is no data. Results Test Result Range Automated blood complete blood count (hemogram) panel - 01/11/19 08:02 Blood leukocytes automated count (number/volume) 7.6 10*3/uL 4.3-11.0 Blood erythrocytes automated count (number/volume) 5.34 10*6/uL 4.35-5.85 Venous blood hemoglobin measurement (mass/volume) 14.9 g/dL 13.3-17.7 Blood hematocrit (volume fraction) 45 % 40-54 Automated erythrocyte mean corpuscular volume 84 [foz_us] 80-99 Automated erythrocyte mean corpuscular hemoglobin (mass per erythrocyte) 28 pg 25-34 Automated erythrocyte mean corpuscular hemoglobin concentration measurement (mass/volume) 33 g/dL 32-36 Automated erythrocyte distribution width ratio 14.2 % 10.0- 14.5 Automated blood platelet count (count/volume) 227 10*3/uL 130-400 Automated blood platelet mean volume measurement 9.3 [foz_us] 7.4-10.4 Encounters ACCT No. Visit Date/Time Discharge Status Pt. Type Provider Facility Loc./Unit Complaint [id number] 01/04/2019 06:36:00 01/04/2019 23:59:59 CLS Outpatient RYLEE PASTRANA Via [facility] CARD CAD [id number] 08/09/2017 09:28:00 08/09/2017 12:54:00 DIS Outpatient PATRICIA TOBIAS MD [facility] ENDO HX COLON CA [id number] 08/02/2017 05:38:00 08/02/2017 11:51:00 DIS Outpatient PATRICIA TOBIAS MD [facility] PREOP HX COLON CA [id number] 05/13/2016 10:37:00 05/13/2016 23:59:59 CLS Outpatient GERALD RODRIGUEZ MD [facility] CARD CAD,HTN [id number] 05/14/2014 08:12:00 05/14/2014 23:59:59 CLS Outpatient RYLEE PASTRANA [facility] CARD CAD,HTN,HLP [id number] 05/07/2014 09:55:00 05/07/2014 23:59:59 CLS Outpatient RYLEE PASTRANA [facility] CARD CAD,HTN,HLP [id number] 10/29/2013 09:26:00 10/29/2013 12:00:00 DIS Emergency YANIRA PANG MD [facility] ER UTI [id number] 01/11/2019 09:30:00 PEN Preadmit GERALD RODRIGUEZ MD [facility] CATH ATRIAL FIB [id number] 03/16/2012 08:45:00 Document Registration [id number] 03/09/2012 10:44:00 Document Registration [id number] 03/07/2012 11:23:00 Document Registration [id number] 08/02/2011 21:49:00 Document Registration [id number] 02/27/2011 10:08:00 Document Registration
--- NOTE | 2019-01-11 10:45 | NUR ---
PATIENT TOOK HIS ELIQUIS 5 MG PO. DENIES ANY DIFFICULTY SWALLOWING.
--- NOTE | 2019-01-11 10:58 | Anesthesia-General Post-Op ---
MAC Patient Condition Mental Status/LOC: Same as Preop Cardiovascular: Satisfactory Nausea/Vomiting: Absent Respiratory: Satisfactory Pain: Controlled Complications: Absent Post Op Complications Complications None Follow Up Care/Instructions Patient Instructions None needed. Anesthesiology Discharge Order Discharge Order Patient is doing well, no complaints, stable vital signs, no apparent adverse anesthesia problems. No complications reported per nursing. VALERIE HENDRICKS CRNA Jan 11, 2019 10:58
--- NOTE | 2019-01-11 13:30 | NUR ---
DR. RODRIGUEZ HERE TO SEE THE PATIENT. WENT OVER DISCHARGE INSTRUCTIONS.
[2019-01-11] MEDS ORDERED: AMIO200T4 PO (14:03)
[2019-01-11] MEDS ORDERED: ATOR10TA PO (14:03)
--- NOTE | 2019-01-11 14:05 | NUR ---
DISCHARGE INSTRUCTIONS WENT OVER WITH THE PATIENT. PATIENT DENIES ANY DISCOMFORT. IV SITE DC'D.
--- NOTE | 2019-01-11 14:44 | Anesthesia-Procedure Note ---
Procedures/Interventions Procedure Start/Stop/Diagnosis Date of Procedure: Jan 11, 2019 Start Time: 09:25 Referring Physician: Laura Brief History Patient given 100 mg Propofol IV total for the AMAYA/Cardioversion. Tolerated procedure well. Reported off to Danay Horner RN Stop Time: 09:37 KRUPA MARTELL CRNA Jan 11, 2019 14:44
[2019-01-11] MEDS ORDERED: ACEBUTOLOL 200 MG (SECTRAL) CAPSULE PO SCH (21:00)
[2019-01-11] MEDS ORDERED: NON-FORMULARY MEDICATION 1 EA EA (Acetaminophen/Diphenhydramine (Tylenol Pm Ex-Strength Ca PO SCH (21:00)
[2019-01-12] MEDS ORDERED: NON-FORMULARY MEDICATION 1 EA EA (Amlodipine Besylate 10 MG) PO SCH (09:00)
[2019-01-12] MEDS ORDERED: NON-FORMULARY MEDICATION 1 EA EA (Aspirin (Aspir 81) 81 MG) PO SCH (09:00)
[2019-01-12] MEDS ORDERED: MULTIVITAMIN PO SCH (09:00)
[2019-01-12] MEDS ORDERED: SIMvastatin 20 MG (ZOCOR) TAB PO SCH (09:00)
[2019-01-12] MEDS ORDERED: FINASTERIDE (PROSCAR) 5 MG TAB PO SCH (09:00)
[2019-01-12] MEDS ORDERED: TAMSULOSIN 0.4 MG (FLOMAX) CAP PO SCH (09:00)
== END 2019-01-11 14:24 | disposition home or self-care (01) ==
LOC: CATH 07:26 → SDC 10:27 → CATH 14:24
PROVIDERS: ATTEND Internal Medicine Cardiovascular Disease
DX: I48.91 Unspecified atrial fibrillation (principal); I25.10 Atherosclerotic heart disease of native coronary artery without angina pectoris; I10 Essential (primary) hypertension; E78.5 Hyperlipidemia, unspecified; I45.2 Bifascicular block; M19.91 Primary osteoarthritis, unspecified site; I65.23 Occlusion and stenosis of bilateral carotid arteries; I08.3 Combined rheumatic disorders of mitral, aortic and tricuspid valves; Z79.01 Long term (current) use of anticoagulants; Z79.899 Other long term (current) drug therapy; Z85.46 Personal history of malignant neoplasm of prostate; Z85.038 Personal history of other malignant neoplasm of large intestine; Z87.891 Personal history of nicotine dependence; Z95.5 Presence of coronary angioplasty implant and graft
CPT/HCPCS: 36415; 71045; 80053; 85027; 85610; 85730; 87081; 93005; 93312; 93320; 93325

== ENCOUNTER 2019-03-22 05:49 | Outpatient (CLI) | payer MEDICARE, OTHER ==
[~2019-03-22] VITALS: Ht 175.3 cm; Wt 86.6 kg
[~2019-03-22 05:49] MED LIST changes: +AMIO200T4 PO; +APIX5TAB PO; +ATOR10TA PO; +CHOL10007 PO; +DIPH25TA65 PO; -LIDOCAINE 2% VISCOUS 15 ML UDC ONE; +LOSA1TAB26 PO; -NS IV 1000 ML 1,000 ML ONE
[2019-03-22] MEDS ORDERED: ACEB200C PO (13:54)
[2019-03-22] MEDS ORDERED: MULT-178 PO (13:54)
[2019-03-22] MEDS ORDERED: AMIO200T4 PO (13:54)
[2019-03-22] MEDS ORDERED: LOSA25TA41 PO (13:54)
[2019-03-22] MEDS ORDERED: TAMS0.4C98 PO (13:54)
== END 2019-03-22 13:55 | disposition home or self-care (01) ==
LOC: PREOP 05:49
PROVIDERS: ATTEND Surgery
DX: Z01.818 Encounter for other preprocedural examination (principal)

== ENCOUNTER 2019-03-28 12:53 | Day surgery (SDC) | payer MEDICARE, OTHER ==
[~2019-03-28] VITALS: Ht 175.3 cm; Wt 86.6 kg
[~2019-03-28 12:53] MED LIST changes: +MULT-178 PO; +TAMS0.4C98 PO
[2019-03-28] MEDS ORDERED: LACTATED RINGERS 1,000 ML IV ONE (12:54)
[2019-03-28] MEDS ORDERED: LACTATED RINGERS 1,000 ML IV STA (12:57)
[2019-03-28] MEDS ORDERED: HURRICAINE EXT TUBE (BENZOCAINE) XX PRN (13:00)
--- NOTE | 2019-03-28 13:15 | Progress Note-Pre Operative ---
Pre-Operative Progress Note H&P Reviewed The H&P was reviewed, patient examined and no changes noted. Date Seen by Provider: Mar 28, 2019 Time Seen by Provider: 13:14 Date H&P Reviewed: Mar 28, 2019 Time H&P Reviewed: 13:14 Pre-Operative Diagnosis: history of colon cancer, iron def anemia, bright red blood per rectum MAGO BANGURA DO Mar 28, 2019 13:15
[2019-03-28 13:18] VITALS: BP 143/75
[2019-03-28] MEDS ORDERED: ESMOLOL 100 MG/10 ML (BREVIBLOC) VIAL ONE (13:30)
[2019-03-28] MEDS ORDERED: PROPOFOL INJECTION 50 ML IV ONE (13:30)
[2019-03-28] MEDS ORDERED: proPOfol 200 MG/20 ML (DIPRIVAN) VIAL IV ONE (13:34)
[2019-03-28] MEDS ORDERED: ATROPINE INJ 0.4 MG/ML SDV ONE (13:49)
[2019-03-28 14:20] VITALS: BP 95/55
[2019-03-28] MEDS ORDERED: HURRICAINE EXT TUBE (BENZOCAINE) ONE (14:28)
--- NOTE | 2019-03-28 14:31 | Progress Note-Post Operative ---
Post-Operative Progess Note Surgeon (s)/Heat Pump Installer (s) Surgeon MAGO BANGURA DO Heat Pump Installer: na Pre-Operative Diagnosis history of colon cancer, iron def anemia, bright red blood per rectum Post-Operative Diagnosis small hiatal hernia, slight gastritis, colon mass splenic flexure Procedure & Operative Findings Date of Procedure 03/28/19 Procedure Performed/Findings egd c biopsy antruym, colonoscopy c cold biopsies colonic mass and antolin inking Anesthesia Type per mda Estimated Blood Loss Estimated blood loss (mL): scant Specimens/Packing Specimens Removed antrum, colonic mass MAGO BANGURA DO Mar 28, 2019 14:31
--- NOTE | 2019-03-28 14:34 | Discharge Inst-Simple/Standard ---
Discharge Inst-Standard Patient Instructions/Follow Up Plan of Care/Instructions/FU: Carlo 2 weeks. Restart Eliquis in 3 days. Activity as Tolerated: Yes Discharge Diet: Regular Diet MAGO BANGURA DO Mar 28, 2019 14:34
[2019-03-28 15:00] VITALS: BP 148/87
--- NOTE | 2019-03-28 15:03 | Anesthesia-General Post-Op ---
MAC Patient Condition Mental Status/LOC: Same as Preop Cardiovascular: Satisfactory Nausea/Vomiting: Absent Respiratory: Satisfactory Pain: Controlled Complications: Absent Post Op Complications Complications None Follow Up Care/Instructions Patient Instructions None needed. Anesthesiology Discharge Order Discharge Order Patient is doing well, no complaints, stable vital signs, no apparent adverse anesthesia problems. TERRA LUCAS DO Mar 28, 2019 15:03
--- NOTE | 2019-03-28 22:18 | OPERATIVE REPORT ---
DATE OF SERVICE: 03/28/2019 PREOPERATIVE DIAGNOSES: History of colon cancer, iron deficiency anemia, bright red blood per rectum. POSTOPERATIVE DIAGNOSES: Small hiatal hernia, slight gastritis, colon mass, splenic flexure. PROCEDURE: EGD with biopsy of the antrum and colonoscopy with cold biopsies, colonic mass and Soledad inking. SURGEON: Mago Matos DO ANESTHESIA: Per MDA. ESTIMATED BLOOD LOSS: Scant. COMPLICATIONS: None. INDICATIONS: The patient is an 83-year-old male with history of colon cancer, iron deficiency anemia, bright red blood per rectum recently. He understands risks and benefits of procedures and wished to proceed with procedure. Consent was signed in the chart. DESCRIPTION OF PROCEDURE: The patient was taken to the endoscopy suite, placed in left lateral recumbent position. Timeout was performed. Scope was inserted in mouth, down the esophagus, stomach and into the duodenum without difficulty. There were no polyps, mass or ulceration within the duodenum. Scope was slowly retracted back into the stomach where it was further insufflated. Slight erythematous changes consistent with some slight gastritis present. Biopsy of the antrum was obtained. Scope was retroflexed noting a small hiatal hernia, no other pathology. Scope was returned to its normal position, slowly withdrawn to the distal esophagus, which had normal appearance. Scope was then slowly retracted back until completely removed noting no other pathology. Digital rectal exam was performed. There were no palpable polyps, mass or ulcerations. The scope was inserted into the rectum and advanced through the sigmoid and descending colon. When a large colonic mass was present, approximately 80% of the lumen was obstructed, I was unable to pass the scope past this area. Therefore, it was determined to start to retract at this point. The scope was then slowly retracted back slightly. Multiple cold biopsies were obtained of the colonic mass. Then, Soledad ink was used to tattoo the colon just distal to the mass, 1 mL in 2 locations for a total of 2 mL of Soledad ink. Scope was then slowly retracted back until in the rectum, which there were no polyps, masses or ulcerations through the distal to the colonic mass. Once in the rectum, scope was retroflexed noting no other pathology. Scope was returned to its normal position, slowly withdrawn until completely removed. The patient tolerated procedure well without any complications, taken to recovery room in stable condition. RECOMMENDATIONS: The patient will follow up on biopsy results in 2 weeks. The patient will also discuss at that time further intervention. Job ID: [id number] DocumentID: [id number] Dictated Date: 03/28/2019 14:41:32 Epic Specialist Date: 03/28/2019 22:17:56 Dictated By: MAGO MATOS DO
[2019-03-29 16:28] VITALS: BP 148/87
== END 2019-03-28 15:06 | disposition home or self-care (01) ==
LOC: ENDO 12:53
PROVIDERS: ATTEND Surgery
DX: K29.70 Gastritis, unspecified, without bleeding (principal); D50.9 Iron deficiency anemia, unspecified; K44.9 Diaphragmatic hernia without obstruction or gangrene; K63.89 Other specified diseases of intestine; I25.10 Atherosclerotic heart disease of native coronary artery without angina pectoris; I10 Essential (primary) hypertension; E78.5 Hyperlipidemia, unspecified; M19.90 Unspecified osteoarthritis, unspecified site; I45.10 Unspecified right bundle-branch block; I48.91 Unspecified atrial fibrillation; G89.29 Other chronic pain; M54.5 Low back pain; Z86.010 Personal history of colon polyps; Z79.01 Long term (current) use of anticoagulants; Z85.46 Personal history of malignant neoplasm of prostate; Z85.038 Personal history of other malignant neoplasm of large intestine; Z82.49 Family history of ischemic heart disease and other diseases of the circulatory system; Z87.891 Personal history of nicotine dependence; Z79.899 Other long term (current) drug therapy
CPT/HCPCS: 88305; 88342

== ENCOUNTER 2019-08-14 11:18 | Outpatient (RCR) | payer MEDICARE, OTHER ==
[~2019-08-14 11:18] MED LIST changes: -ACET-2469 PO; +ACET-2715 PO; +SIMV20TA26 PO; -SIMV20TA3 PO; -TAMS0.4C98 PO; +TMSL.4C PO
== END 2019-11-12 | disposition home or self-care (01) ==
LOC: CARD 11:18
PROVIDERS: ATTEND Internal Medicine Cardiovascular Disease
DX: R00.1 Bradycardia, unspecified (principal); I49.3 Ventricular premature depolarization; I49.1 Atrial premature depolarization; I65.29 Occlusion and stenosis of unspecified carotid artery; I10 Essential (primary) hypertension; E78.5 Hyperlipidemia, unspecified; I44.4 Left anterior fascicular block; I25.10 Atherosclerotic heart disease of native coronary artery without angina pectoris
CPT/HCPCS: 93225; 93226

== ENCOUNTER → 2021-10-27 | Outpatient (CLI) | payer MEDICARE, OTHER ==
[~2021-10-27] MED LIST changes: -ACET-2715 PO; +ACET-3075 PO; -AMIO200T4 PO; +AMIO200T65 PO; +AMLO-251 PO; -AMLO10TA7 PO; +CATHETER FLUSH 10 ML SYR IVP PRN; -FOLI1TAB24 PO; +FOLI1TAB33 PO
--- NOTE | 2021-10-27 08:20 | Diagnostic Imaging Report ---
Indication: Long-term use of amiodarone. Time of Exam: 8:02 AM Correlation is made with prior chest from 09/19/2020. The heart size normal. Lungs are clear. No infiltrates are seen. No significant interstitial changes are seen. There is no effusion or pneumothorax. IMPRESSION: No acute cardiopulmonary process is detected. Dictated by: Dictated on workstation # [id number]
[2021-10-27 09:08] VITALS: BP 116/82
--- NOTE | 2021-10-27 11:38 | Cardiology Stress Test Report ---
Stress Test Report Date of Procedure/Referring: Date of Procedure: Oct 27, 2021 PCP Gerald Sanchez MD Admitting Physician Jordan Bai MD Indications: CAD Baseline Heart Rate: 50 Baseline Blood Pressure: Blood Pressure Systolic: 116 Blood Pressure Diastolic: 82 Vital Signs Date Time Temp Pulse Resp B/P (MAP) Pulse Ox O2 Delivery O2 Flow Rate FiO2 10/27/21 09:08 50 116/82 (93) Baseline Vital Signs Vital Signs Date Time Temp Pulse Resp B/P (MAP) Pulse Ox O2 Delivery O2 Flow Rate FiO2 10/27/21 09:08 50 116/82 (93) Baseline EKG: Baseline EKG: RBBB Summary: After explaining the procedure and details to the patient, he signed the consent and was brought to the stress nuclear laboratory. Patient exercised on standard Denilson protocol, EKG, heart rate and blood pressure were monitored continuously, resting and stress doses of radio tracer were injected, imaging was acquired and reviewed in the short axis, horizontal long axis and vertical long axis views Patient was able to exercise for a total of 5 minutes on Denilson protocol, METs 7 Maximum heart rate 115 Maximum blood pressure 202/97 Stress EKG, Minimal nondiagnostic changes Recovery EKG, Return to baseline TID: 1.19 SSS: 9 SDS: 3 EF: 54 Conclusion: 1. Good exercise tolerance for a total of 5 minutes on standard Denilson protocol, 7 METS achieving 85% of maximum expected heart rate 2. Appropriate heart rate response to exercise with hypertensive response to exercise return to baseline during recovery peak blood pressure 202/97 3. Baseline right bundle branch block persisted during test 4. Diaphragmatic attenuation with mild reversible ischemia involving the inferior wall and inferolateral wall 5. Normal left ventricular size, ejection fraction 54% GERALD SANCHEZ MD Oct 27, 2021 11:37
== END ==
LOC: CARD 08:15
PROVIDERS: ATTEND Internal Medicine Cardiovascular Disease
DX: I10 Essential (primary) hypertension (principal); Z79.899 Other long term (current) drug therapy
CPT/HCPCS: 71046; 78452; 93017; A9502

== ENCOUNTER 2021-12-03 07:53 | Day surgery (SDC) | payer MEDICARE ==
[~2021-12-03] VITALS: Ht 175.3 cm; Wt 92.5 kg
[2021-12-03] VITALS (11 sets, daily range): BP systolic 135–188; BP diastolic 72–96
[~2021-12-03 07:53] MED LIST changes: -CATHETER FLUSH 10 ML SYR IVP PRN
[2021-12-03] MEDS ORDERED: LIDOCAINE 1% INJ 20 ML VIAL ONE (07:57)
[2021-12-03] MEDS ORDERED: HEParin (CATH LAB) 2,000 ML IV ONE (07:57)
[2021-12-03] MEDS ORDERED: NS IV 1000 ML 1,000 ML IV SCH ×2 (08:00→09:45)
[2021-12-03] MEDS ORDERED: MIDAZOLAM 5 MG/5 ML (VERSED) VIAL ONE (08:19)
[2021-12-03] MEDS ORDERED: fentaNYL INJ 100 MCG/2 ML AMP ONE (08:19)
[2021-12-03] MEDS ORDERED: ATOR10TA66 PO (08:20)
[2021-12-03] MEDS ORDERED: TMSL.4C PO (08:20)
[2021-12-03] MEDS ORDERED: LOSA100T57 PO (08:20)
[2021-12-03 08:24] LABS: HEMATOCRIT 45 % (40-54); HEMOGLOBIN 15.4 g/dL (13.3-17.7); MEAN CORPUSCULAR HEMOGLOBIN 31 pg (25-34); MEAN CORPUSCULAR HGB CONC 34 g/dL (32-36); MEAN CORPUSCULAR VOLUME 92 fL (80-99); MEAN PLATELET VOLUME 10.3 fL (9.0-12.2); PLATELET COUNT 189 10^3/uL (130-400); WHITE BLOOD COUNT 6.5 10^3/uL (4.3-11.0)
[2021-12-03 08:55] LABS: PROTHROMBIN TIME PATIENT 13.6 SEC (12.2-14.7)
[2021-12-03 09:02] LABS: ALBUMIN 4.3 GM/DL (3.2-4.5); BILIRUBIN,TOTAL 1.2 MG/DL (0.1-1.0); CALCIUM 9.3 MG/DL (8.5-10.1); CREATININE SERUM 2.19 MG/DL (0.60-1.30); POTASSIUM 4.2 MMOL/L (3.6-5.0); TOTAL PROTEIN 7.3 GM/DL (6.4-8.2)
--- NOTE | 2021-12-03 09:03 | Conscious Sedation/ASA ---
Conscious Sedation Pre-Proced Time 09:03 ASA Score 3 For ASA 3 and 4: Consider anesthesia and medical clearance. Also, for patients with a history of failed moderate sedation consider anesthesia. Airway Lungs Heart ASA score ASA 1: a normal healthy patient ASA 2: a patient with a mild systemic disease (mid diabetes, controlled hypertension, obesity x ASA 3: a patient with a severe systemic disease that limits activity (angina, COPD, prior Myocardial infarction) ASA 4: a patient with an incapacitating disease that is a constant threat to life (CHF, renal failure) ASA 5: a moribund patient not expected to survive 24 hrs. (ruptured aneurysm) ASA 6: a declared brain- patient whose organs are being harvested. For emergent operations, add the letter E after the classification Mallampati Classification Grade 3 Sedation Plan Analgesia, Amnesia, Plan communicated to team members, Discussed options with patient/fam, Discussed risks with patient/fam The patient is an appropriate candidate to undergo the planned procedure, sedation, and anesthesia. The patient immediately re-assessed prior to indication. GERALD RODRIGUEZ MD December 03, 2021 09:03
--- NOTE | 2021-12-03 09:39 | Discharge Inst-Post CATH ---
Discharge Inst-CATH/EP Problems Reviewed?: Yes Post Cardiac Cath/EP D/C Inst Follow Up/Plan Appointment with Dr. Sanchez's office in 2 to 4 weeks <b>CARDIAC CATH/EP PROCEDURE DISCHARGE INSTRUCTIONS</b> ACTIVITY * Go Home directly and rest. * Limit activity of the leg (or wrist if it was used) for 7 days including aer obics, swimming, jogging, bicycling, etc. * Restrict stair-climbing for 7 days if possible, if not, climb up with your non-cath leg, then bring together on the same step. * Avoid lifting, pushing, pulling or excessive movement of the affected extremi ty for 7 days. * Customary sexual activity may be resumed after 2 days-use caution not to use a position that strains or causes pain to the affected extremity. * No driving for 24 hours. * NO SMOKING. * Avoid straining for bowel movements for 7 days. * Gentle walking on level ground is allowed. * Returning to work will depend on the type of procedure and the results. Your doctor will discuss this with you. CALL YOUR DOCTOR FOR ANY OF THE FOLLOWING: *If bleeding from the puncture site occurs- Apply gentle pressure to site with clean cloth and call your doctor or EMS. * If a knot or lump forms under the skin, increases in size, or causes pain. * If bruising appears to be worsening or moving further down your leg instead of disappearing. * Temperature above 101 F. CARE OF YOUR GROIN INCISION; * Bruising or purple discoloration of the skin near the puncture site is common. * You may shower only, no bathtub bathing for 5 days. Be careful to avoid slipping as your leg may feel stiff. * If a closure device was used on your femoral artery, please see the attached guide regarding care of the device and your leg. * Leave dressing on FOR 24 hours. CARE OF YOUR WRIST INCISION; * Bruising or purple discoloration of the skin near the puncture site is common. * You may shower. * DO NOT submerge wrist. * Leave dressing on FOR 24 hours. GERALD SANCHEZ MD December 03, 2021 09:39
--- NOTE | 2021-12-03 09:43 | Cardiac Cath Report ---
Cardiac Cath Report Physician (s)/Field Checker (s) Physician GERALD RODRIGUEZ MD Pre-Procedure Diagnosis Pre-Procedure Diagnosis: Coronary artery disease Post-Procedure Note Procedure Start Date: December 03, 2021 Name of Procedure: Left heart catheterization Findings/Procedure Note PROCEDURE NOTE: 86-year-old gentleman with history of coronary artery disease, hypertension, hyperlipidemia, chronic renal insufficiency. Patient had an abnormal stress test with inferior wall ischemia, scheduled for cardiac catheterization possible PTCA. After explaining the procedure to the patient, all pros and cons were explained, all questions were answered. The patient signed the consent and then he was placed on the cardiac catheterization laboratory. Groin was prepped SL fashion local anesthesia was used. Sheath placed in the right femoral artery. [place] right and left catheter were used to access the coronary system. Pigtail was used to access the left ventricular cavity. Left ventriculogram was not done to limit the exposure to contrast At the end of the procedure the sheath was removed. Closure device was deployed FINDINGS: Hemodynamics LV 123/13, end-diastolic pressure of 13 Aorta 142/60 mean of 82 ANATOMY: Left Main is free of obstructive disease Left Anterior Descending is calcified with mild disease proximally nonobstructive disease Left Circumflex is moderate in size with mild disease nonobstructive disease Right Coronary Artery is dominant artery with patent stent in the mid right coronary artery with mild disease, the right posterior lateral branch is occluded and receiving collaterals from the left. Did not change compared to the previous study in 2012 LV Gram was not done, pressure is measured CONCLUSION: 1. 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 Patent stent in the mid right coronary artery with mild disease nonobstructive disease 3. Calcified LAD with mild disease nonobstructive disease 4. Normal left ventricular end-diastolic pressure DISCUSSION AND RECOMMENDATION: Patient has chronic total occlusion of the right coronary artery that has not changed compared to the study of 2012. Conservative management is recommended He was noted to have bradycardia with a heart rate in the 40s. He is maintained on acebutolol 200 mg daily, he is asymptomatic we will continue monitoring He has underlying renal insufficiency with creatinine 2.1, tolerating losartan well. Borderline hypertensive. Continue to monitor and educated on increasing fluid intake Anesthesia Type: Conscious Sedation Estimated blood loss (mL): 15 ml Contrast Amount: 11 ml Total Radiation Dose: 413 mGy Post-Procedure Diagnosis Post-operative diagnosis: Coronary artery disease Hypertension Hyperlipidemia Sinus bradycardia GERALD RODRIGUEZ MD December 03, 2021 09:43
[2021-12-03] MEDS ORDERED: PATIENT MAY USE OWN MEDS, ALL PO SCH (09:45)
== END 2021-12-03 14:10 ==
LOC: CATH 07:53 → SDC 10:02 → CATH 14:10
PROVIDERS: ATTEND Internal Medicine Cardiovascular Disease
DX: I25.10 Atherosclerotic heart disease of native coronary artery without angina pectoris (principal); I25.82 Chronic total occlusion of coronary artery; I10 Essential (primary) hypertension; E78.2 Mixed hyperlipidemia; I48.0 Paroxysmal atrial fibrillation; I34.0 Nonrheumatic mitral (valve) insufficiency; I65.23 Occlusion and stenosis of bilateral carotid arteries; I45.10 Unspecified right bundle-branch block; Z79.01 Long term (current) use of anticoagulants; Z87.891 Personal history of nicotine dependence; Z85.46 Personal history of malignant neoplasm of prostate; Z85.038 Personal history of other malignant neoplasm of large intestine; Z90.49 Acquired absence of other specified parts of digestive tract; Z95.5 Presence of coronary angioplasty implant and graft; Z79.899 Other long term (current) drug therapy
CPT/HCPCS: 80053; 85027; 85610; 87081; 93458; C1760; C1894; 36415

== ENCOUNTER → 2023-03-23 | Outpatient (CLI) | payer MEDICARE ==
[~2023-03-23] MED LIST changes: +ACEB200C17 PO; +ATOR10TA66 PO; +LOSA100T58 PO
== END ==
LOC: CARD 10:30
PROVIDERS: ATTEND Internal Medicine Cardiovascular Disease
DX: I11.9 Hypertensive heart disease without heart failure (principal); I35.1 Nonrheumatic aortic (valve) insufficiency
CPT/HCPCS: 93306